=== PATIENT | male | born 1995 | race Caucasian/White ===

== ENCOUNTER 2016-07-21 18:34 | Emergency (ER) | payer BC ==
[2016-07-21 18:55] VITALS: BP 138/87
[2016-07-21] MEDS ORDERED: Sodium Chloride 0.9% 10 ML Syringe FLUSH PRN (19:06)
[2016-07-21] MEDS ORDERED: Ondansetron 4 MG/2 ML SDV IVPUSH ONE (19:07)
--- NOTE | 2016-07-21 19:09 | EDM.PDOC ---
ED HPI GI/ABDOMINAL - General Chief Complaint: Abdominal Pain Stated Complaint: VOMITING Time Seen by Provider: 07/21/16 19:02 Source: Reports: Patient, Family, RN notes reviewed History Limitations: Reports: No limitations - History of Present Illness INITIAL COMMENTS - FREE TEXT/NARRATIVE: 21-year-old gentleman presents as a complaint of nausea and vomiting he states he has been ill for about a week, denies any other symptoms no sick contacts denies any stool has not been able to keep any food down - Related Data Allergies/ADRs: Allergies Allergy/AdvReac Type Severity Reaction Status Date / Time No Known Allergies Allergy Verified 07/21/16 18:51 Home Meds: Home Meds NK [No Known Home Meds] 06/13/14 [History] Past Medical History Respiratory History: Reports: Asthma Gastrointestinal History: Reports: Other (see below) Other Gastrointestinal History: vomiting blood Neurological History: Reports: Migraines Psychiatric History: Reports: ADHD - Past Surgical History GI Surgical History: Reports: EGD Social & Family History - Tobacco Use Smoking Status *Q: Current Every Day Smoker Years of Tobacco use: 7 Packs/Tins Daily: 1 Used Tobacco, but Quit: No Second Hand Smoke Exposure: Yes - Caffeine Use Caffeine Use: Reports: Soda - Alcohol Use Days Per Week of Alcohol Use: 0 Date of Last Drink: 07/16/16 - Recreational Drug Use Recreational Drug Use: No ED ROS GENERAL - Review of Systems Review Of Systems: See Below Constitutional: Denies: fever, chills HEENT: Reports: No symptoms Respiratory: Reports: No Symptoms Cardiovascular: Reports: No symptoms GI/Abdominal: Reports: Nausea, Vomiting. Denies: Abdominal pain : Reports: no symptoms Musculoskeletal: Reports: no symptoms Skin: Reports: no symptoms Neurological: Reports: No Symptoms ED EXAM, GI/ABD - Physical Exam Exam: See Below Text/Narrative:: General: Male, not in any distress, alert and oriented x3 HEENT: head is atraumatic normocephalic, eyes pupils equal round reactive to light, sclera clear no conjunctivitis appreciated. Ears tympanic membranes clear and chin landmarks and light reflex are present bilaterally canals are clear. Nose no septal deviation, nares are clear, no blood present. Mouth mucosa is moist and pink no erythema or exudate noted in soft palate, tongue is midline uvula is midline, dentition is intact. Neck: Supple no thyromegaly no tracheal deviation. Nodes: Cervical nodes subclavicular nodes nontender no palpable lymphadenopathy noted. Lungs: clear to auscultation bilaterally with symmetrical respirations, no adventitious noise appreciated. CV: Regular rate and rhythm S1 and S2 appreciated no murmurs rubs or gallops noted. Abdomen: Soft, nontender, no palpable masses or organomegaly appreciated, no distention no guarding bowel sounds are present, . Neuro: Cranial nerves II through XII grossly intact Skin: Warm and dry, intact Extremities: No lower extremity edema appreciated, Course - Vital Signs Last Recorded V/S: Last Vital Signs Temp 96.6 F 07/21/16 18:53 Pulse 80 07/21/16 18:53 Resp 16 07/21/16 18:53 BP 138/87 07/21/16 18:53 Pulse Ox 99 07/21/16 18:53 - Orders/Labs/Meds Orders: Active Orders 24 hr Category Date Time Status Peripheral IV Care [RC] . DIRECTED Care 07/21/16 19:06 Active Lactated Ringers [Ringers, Lactated] 1,000 ml Med 07/21/16 19:15 Active IV ASDIRECTED Sodium Chloride 0.9% [Saline Flush] Med 07/21/16 19:06 Active 10 ml FLUSH ASDIRECTED PRN Peripheral IV Insertion Adult [OM.PC] Urgent Oth 07/21/16 19:06 Ordered Medication Orders Lactated Ringer's (Ringers, Lactated) 1,000 mls @ 999 mls/hr IV ASDIRECTED GUSTAVO Last Admin: 07/21/16 19:29 Dose: 999 mls/hr Sodium Chloride (Saline Flush) 10 ml FLUSH ASDIRECTED PRN PRN Reason: Keep Vein Open Last Admin: 07/21/16 19:33 Dose: 10 ml Labs: Laboratory Tests 07/21/16 07/21/16 07/21/16 Range/Units 19:19 19:19 19:19 WBC 8.3 (4.5-11.0) K/uL RBC 5.06 (4.30-5.90) M/uL Hgb 16.2 H (12.0-15.0) g/dL Hct 44.9 (40.0-54.0) % MCV 89 (80-98) fL MCH 32 H (27-31) pg MCHC 36 (32-36) % Plt Count 260 (150-400) K/uL Neut % (Auto) 53 (36-66) % Lymph % (Auto) 31 (24-44) % [place] % (Auto) 13 H (2-6) % Eos % (Auto) 2 (2-4) % Baso % (Auto) 1 (0-1) % Sodium 140 (140-148) mmol/L Potassium 3.8 (3.6-5.2) mmol/L Chloride 104 (100-108) mmol/L Carbon Dioxide 30 (21-32) mmol/L Anion Gap 6.3 (5.0-14.0) mmol/L BUN 8 (7-18) mg/dL Creatinine 1.0 (0.8-1.3) mg/dL Est Cr Clr Drug Dosing 108.33 mL/min Estimated GFR (MDRD) > 60 (>60) Glucose 107 H (74-106) mg/dL Lactic Acid 0.8 (0.4-2.0) mmol/L Calcium 8.5 (8.5-10.1) mg/dL Total Bilirubin 0.9 D (0.2-1.0) mg/dL AST 11 L (15-37) U/L ALT 17 (12-78) U/L Alkaline Phosphatase 92 (46-116) U/L Total Protein 7.2 (6.4-8.2) g/dL Albumin 4.3 (3.4-5.0) g/dL Globulin 2.9 (2.3-3.5) g/dL Albumin/Globulin Ratio 1.5 (1.2-2.2) Lipase 147 (73-393) U/L Urine Color Urine Appearance Urine pH (4.5-8.0) Ur Specific [place] (1.008-1.030) Urine Protein (NEGATIVE) mg/dL Urine Glucose (UA) (NEGATIVE) mg/dL Urine Ketones (NEGATIVE) mg/dL Urine Occult Blood (NEGATIVE) Urine Nitrite (NEGAITVE) Urine Bilirubin (NEGATIVE) Urine Urobilinogen (NORMAL) mg/dL Ur Leukocyte Esterase (NEGATIVE) Urine RBC (0-5) Urine WBC (0-5) Ur Epithelial Cells Amorphous Sediment Urine Bacteria Urine Mucus 07/21/16 Range/Units 20:50 WBC (4.5-11.0) K/uL RBC (4.30-5.90) M/uL Hgb (12.0-15.0) g/dL Hct (40.0-54.0) % MCV (80-98) fL MCH (27-31) pg MCHC (32-36) % Plt Count (150-400) K/uL Neut % (Auto) (36-66) % Lymph % (Auto) (24-44) % [place] % (Auto) (2-6) % Eos % (Auto) (2-4) % Baso % (Auto) (0-1) % Sodium (140-148) mmol/L Potassium (3.6-5.2) mmol/L Chloride (100-108) mmol/L Carbon Dioxide (21-32) mmol/L Anion Gap (5.0-14.0) mmol/L BUN (7-18) mg/dL Creatinine (0.8-1.3) mg/dL Est Cr Clr Drug Dosing mL/min Estimated GFR (MDRD) (>60) Glucose (74-106) mg/dL Lactic Acid (0.4-2.0) mmol/L Calcium (8.5-10.1) mg/dL Total Bilirubin (0.2-1.0) mg/dL AST (15-37) U/L ALT (12-78) U/L Alkaline Phosphatase (46-116) U/L Total Protein (6.4-8.2) g/dL Albumin (3.4-5.0) g/dL Globulin (2.3-3.5) g/dL Albumin/Globulin Ratio (1.2-2.2) Lipase (73-393) U/L Urine Color Yellow Urine Appearance Clear Urine pH 7.0 (4.5-8.0) Ur Specific [place] 1.010 (1.008-1.030) Urine Protein Negative (NEGATIVE) mg/dL Urine Glucose (UA) Normal (NEGATIVE) mg/dL Urine Ketones Negative (NEGATIVE) mg/dL Urine Occult Blood Negative (NEGATIVE) Urine Nitrite Negative (NEGAITVE) Urine Bilirubin Negative (NEGATIVE) Urine Urobilinogen Normal (NORMAL) mg/dL Ur Leukocyte Esterase Negative (NEGATIVE) Urine RBC 0-5 (0-5) Urine WBC 0-5 (0-5) Ur Epithelial Cells Few Amorphous Sediment Few Urine Bacteria Few Urine Mucus Moderate Meds: Medications Generic Name Dose Route Start Last Admin Trade Name Freq PRN Reason Stop Dose Admin Lactated Ringer's 1,000 mls @ 999 mls/hr 07/21/16 19:15 07/21/16 19:29 Ringers, Lactated IV 999 mls/hr ASDIRECTED GUSTAVO Administration Sodium Chloride 10 ml 07/21/16 19:06 07/21/16 19:33 Saline Flush FLUSH 10 ml ASDIRECTED PRN Administration Keep Vein Open Discontinued Medications Generic Name Dose Route Start Last Admin Trade Name Freq PRN Reason Stop Dose Admin Ondansetron HCl 4 mg 07/21/16 19:07 07/21/16 19:31 Zofran IVPUSH 07/21/16 19:08 4 mg ONETIME ONE Administration Departure - Departure Time of Disposition: 21:10 Disposition: Home, Self-Care 01 Condition: good Clinical Impression: Nausea & vomiting Qualifiers: Vomiting type: unspecified Vomiting Intractability: non-intractable Qualified Code(s): R11.2 - Nausea with vomiting, unspecified Forms: ED Department Discharge Additional Instructions: Uses Zofran as needed to help control nausea and vomiting symptoms, Please followup with your primary care provider in 3-5 days if not better, please call return to the emergency department with worsening of symptoms. - My Orders Last 24 Hours: My Active Orders 07/21/16 19:06 Peripheral IV Care [RC] . DIRECTED Sodium Chloride 0.9% [Saline Flush] 10 ml FLUSH ASDIRECTED PRN Peripheral IV Insertion Adult [OM.PC] Urgent 07/21/16 19:15 Lactated Ringers [Ringers, Lactated] 1,000 ml IV ASDIRECTED - Assessment/Plan Last 24 Hours: My Active Orders 07/21/16 19:06 Peripheral IV Care [RC] . DIRECTED Sodium Chloride 0.9% [Saline Flush] 10 ml FLUSH ASDIRECTED PRN Peripheral IV Insertion Adult [OM.PC] Urgent 07/21/16 19:15 Lactated Ringers [Ringers, Lactated] 1,000 ml IV ASDIRECTED Plan: Assessment Acuity = acute Site and laterality = nausea vomiting Etiology = unclear etiology possibly stress related Manifestations = none Location of injury = home Lab values = CBC, CMP, urinalysis unremarkable specific gravity 1.01 Plan He had significant improvement combination Zofran and 1 L of fluids he was able to urinate after that, plan followup with primary care next 3-5 days if no improvement prescription written for Zofran Patient was in agreement with the plan all questions were answered, they were instructed to return to the emergency department or call for worsening symptoms. This note was dictated using [employer] voice recognition software please call with any questions.
[2016-07-21] MEDS ORDERED: Lactated Ringers 1,000 ML IV SCH (19:15)
== END 2016-07-21 21:22 | disposition home or self-care (01) ==
LOC: JP.ED 18:34
DX: R11.2 Nausea with vomiting, unspecified (principal); F17.210 Nicotine dependence, cigarettes, uncomplicated
CPT/HCPCS: 36415; 80053; 81001; 83605; 83690; 85025; 96361; 96374; 99284; J2405; J7050; J7120

== ENCOUNTER 2016-07-22 19:10 | Emergency (ER) | payer BC ==
[2016-07-22 19:31] VITALS: BP 134/98
[2016-07-22] MEDS ORDERED: Acetaminophen 325 MG Tab PO ONE (19:56)
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
== END 2016-07-22 22:49 | disposition home or self-care (01) ==
LOC: JP.ED 19:10
DX: R45.851 Suicidal ideations (principal); J45.909 Unspecified asthma, uncomplicated
CPT/HCPCS: 80305; 81001; 99285; A9270

== ENCOUNTER 2016-08-29 00:58 | Emergency (ER) | payer BC ==
[2016-08-29 01:29] VITALS: BP 131/64
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
== END 2016-08-29 04:28 | disposition home or self-care (01) ==
LOC: JP.ED 00:58
DX: F10.10 Alcohol abuse, uncomplicated (principal); R45.851 Suicidal ideations; J45.909 Unspecified asthma, uncomplicated; F17.210 Nicotine dependence, cigarettes, uncomplicated
CPT/HCPCS: 99284

== ENCOUNTER 2016-08-29 14:10 | Emergency (ER) | payer BC ==
[2016-08-29 14:23] VITALS: BP 122/76
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
== END 2016-08-29 16:27 | disposition home or self-care (01) ==
LOC: JP.ED 14:10
DX: F10.20 Alcohol dependence, uncomplicated (principal); J45.909 Unspecified asthma, uncomplicated; F17.210 Nicotine dependence, cigarettes, uncomplicated
CPT/HCPCS: 99285

== ENCOUNTER 2016-10-22 07:47 | Day surgery (SDC) | payer BC ==
[~2016-10-22 07:47] MED LIST: Bupivacaine 0.5% 50 ML MDV ONE; Lidocaine 1% with EPINEPHrine 1:100,000 50 ML MDV ONE; Midazolam 1 MG/ML 2 ML SDV ONE; Propofol 200 MG/20 ML SDV ONE; fentaNYL 100 MCG/2 ML SDV ONE
[2016-10-22] MEDS ORDERED: Sodium Chloride 0.9% 1,000 ML IV SCH (08:30)
[2016-10-22] MEDS ORDERED: ceFAZolin 2 GM in Premix Bag 1 BAG IV ONE (09:00)
[2016-10-22] MEDS ORDERED: Midazolam 1 MG/ML 2 ML SDV ONE (09:23)
[2016-10-22] MEDS ORDERED: Bacitracin Oint 1 GM U/D Packet ONE (09:35)
[2016-10-22 10:44] VITALS: BP 98/57
--- NOTE | 2016-10-23 09:02 | OR ---
DATE OF PROCEDURE: 10/22/2016 PROCEDURE PERFORMED: Excision of lesion, right buttock. COMPLICATION: None. INDUSTRY CONSULTANT: None. ANESTHESIA: MAC. INDICATIONS: A 21-year-old male with significant anxiety requiring excision of right buttock lesion using MAC anesthetic. PROCEDURE IN DETAIL: The patient was placed in left lateral decubitus position. The lesion which had been identified preoperatively by the patient was anesthetized with lidocaine. An elliptical incision was made. This was full thickness and this was 3.2 cm. This was then excised and sent to Pathology. The wound was checked for hemostasis, which was achieved. The wound was closed with 3-0 Vicryl and 3-0 Prolene in an interrupted running fashion and dressings were applied. The patient tolerated the procedure well. Eusebio Arzola MD /[id number]
== END 2016-10-22 10:50 | disposition home or self-care (01) ==
LOC: JP.SDS 07:47
PROVIDERS: ATTEND Surgery
DX: L02.212 Cutaneous abscess of back [any part, except buttock and flank] (principal); L90.5 Scar conditions and fibrosis of skin
CPT/HCPCS: 11404; 12032; J0690; J2250; J2704; J3010; J7040; 88304

== ENCOUNTER 2019-01-25 09:07 | Day surgery (SDC) | payer BC ==
--- NOTE | 2019-01-25 09:41 | EDM.PDOC ---
ED HPI GENERAL MEDICAL PROBLEM - General Chief Complaint: Lower Extremity Injury/Pain Stated Complaint: growth on leg Time Seen by Provider: 01/25/19 09:25 Source of Information: Reports: Patient History Limitations: Reports: No Limitations - History of Present Illness INITIAL COMMENTS - FREE TEXT/NARRATIVE: 23-year-old male with a worsening painful lesion on his right anterior buttock area in the perirectal region, scheduled to have surgery tomorrow. It's much more painful today, he's having difficulty walking. He went into the clinic to see if he could have it taken care of or at least get something for pain, and they sent him to the emergency room. No fevers or chills. He is on clindamycin but missed a dose last night. Onset: Gradual Duration: Day(s): (Several days of increased pain) Location: Reports: Other (Right buttock) Associated Symptoms: Reports: Loss of Appetite Sacral Pain Score (Numeric/FACES): 10 - Related Data Allergies Allergy/AdvReac Type Severity Reaction Status Date / Time No Known Allergies Allergy Verified 01/25/19 12:21 Home Meds: Home Meds Clindamycin HCl 300 mg PO ASDIRECTED 01/25/19 [History] Past Medical History - Past Health History Medical/Surgical History: Denies Medical/Surgical History HEENT History: Reports: Sinusitis Respiratory History: Reports: Asthma Gastrointestinal History: Reports: Other (See Below) Other Gastrointestinal History: vomiting blood Neurological History: Reports: Migraines Psychiatric History: Reports: ADHD, Suicidal Ideation, Other (See Below) Other Psychiatric History: pt states no suicide attempt was on chart prior Dermatologic History: Reports: Other (See Below) Other Dermatologic History: Pilondal cyst x 8 - Infectious Disease History Infectious Disease History: Reports: Chicken Pox - Past Surgical History GI Surgical History: Reports: EGD Social & Family History - Family History Family Medical History: Noncontributory - Tobacco Use Smoking Status *Q: Current Every Day Smoker Years of Tobacco use: 10 Packs/Tins Daily: 2 - Caffeine Use Caffeine Use: Reports: Soda - Recreational Drug Use Recreational Drug Use: No Review of Systems - Review of Systems Review Of Systems: See Below Constitutional: Denies: Fever Respiratory: Reports: No Symptoms Cardiovascular: Reports: No Symptoms GI/Abdominal: Reports: No Symptoms. Denies: Nausea, Vomiting Skin: Reports: Erythema (Erythema over and around the inflamed area) Neurological: Reports: No Symptoms ED EXAM, GENERAL - Physical Exam Exam: See Below Exam Limited By: No Limitations General Appearance: Alert, Mild Distress Respiratory/Chest: No Respiratory Distress Cardiovascular: Regular Rate, Rhythm, Tachycardia GI/Abdominal: Non-Tender Neurological: Alert, Oriented Skin Exam: Other (Patient is a large, inflamed, very tender subcutaneous abscess which is developed just in front of the anus on the right buttock) Course - Vital Signs Last Recorded V/S: Last Vital Signs Temp 99.5 F 01/25/19 14:38 Pulse 79 01/25/19 14:53 Resp 18 01/25/19 14:53 BP 113/75 01/25/19 14:53 Pulse Ox 95 01/25/19 14:38 - Orders/Labs/Meds Orders: Active Orders 24 hr Category Date Time Status Patient Status [ADT] Routine ADT 01/25/19 10:46 Active CULTURE ANAEROBIC [RM] Routine Lab 01/25/19 13:58 Results CULTURE WOUND + SMEAR [RM] Routine Lab 01/25/19 13:58 Results Sodium Chloride 0.9% [Normal Saline] 1,000 ml Med 01/25/19 10:45 Active IV ASDIRECTED Medication Orders Sodium Chloride (Normal Saline) 1,000 mls @ 250 mls/hr IV ASDIRECTED GUSTAVO Last Admin: 01/25/19 11:08 Dose: 250 mls/hr Meds: Medications Generic Name Dose Route Start Last Admin Trade Name Freq PRN Reason Stop Dose Admin Sodium Chloride 1,000 mls @ 250 mls/hr 01/25/19 10:45 01/25/19 11:08 Normal Saline IV 250 mls/hr ASDIRECTED GUSTAVO Administration Discontinued Medications Generic Name Dose Route Start Last Admin Trade Name Freq PRN Reason Stop Dose Admin Bupivacaine HCl Confirm 01/25/19 10:58 01/25/19 13:40 Marcaine 0.5% Administered 01/25/19 10:59 20 ml Dose Administration 50 ml .ROUTE .STK-MED ONE Cefoxitin Sodium Confirm 01/25/19 13:35 Mefoxin Administered 01/25/19 13:36 Dose 2 gm .ROUTE .STK-MED ONE Dexamethasone Confirm 01/25/19 12:44 Dexamethasone Administered 01/25/19 12:45 Dose 4 mg .ROUTE .STK-MED ONE Fentanyl 50 mcg 10/30/19 10:44 01/25/19 11:11 Sublimaze IVPUSH 01/25/19 10:45 50 mcg ONETIME ONE Administration Fentanyl Confirm 01/25/19 12:43 Sublimaze Administered 01/25/19 12:44 Dose 250 mcg .ROUTE .STK-MED ONE Fentanyl Confirm 01/25/19 13:30 Sublimaze Administered 01/25/19 13:31 Dose 250 mcg .ROUTE .STK-MED ONE Glycopyrrolate Confirm 01/25/19 12:44 Robinul Administered 01/25/19 12:45 Dose 1 mg .ROUTE .STK-MED ONE Ampicillin Sodium/Sulbactam 100 mls @ 200 mls/hr 01/25/19 10:44 01/25/19 11: 09 Sodium 3 gm/ Sodium Chloride IV 01/25/19 11:13 200 mls/hr ONETIME ONE Administration Lactated Ringer's Confirm 01/25/19 13:42 Ringers, Lactated Administered 01/25/19 13:43 Dose 1,000 mls @ as directed .ROUTE .STK-MED ONE Lidocaine/Epinephrine Confirm 01/25/19 10:58 01/25/19 13:40 Xylocaine 1% With Epinephrine 1:100,000 Administered 01/25/19 10:59 20 ml Dose Administration 50 ml .ROUTE .STK-MED ONE Neostigmine Methylsulfate Confirm 01/25/19 12:44 Neostigmine Administered 01/25/19 12:45 Dose 5 mg .ROUTE .STK-MED ONE Ondansetron HCl Confirm 01/25/19 12:44 Zofran Administered 01/25/19 12:45 Dose 4 mg .ROUTE .STK-MED ONE Propofol Confirm 01/25/19 12:44 Diprivan 20 Ml Administered 01/25/19 12:45 Dose 200 mg .ROUTE .STK-MED ONE Rocuronium [place] Confirm 01/25/19 12:44 Zemuron Administered 01/25/19 12:45 Dose 50 mg .ROUTE .STK-MED ONE - Re-Assessments/Exams Free Text/Narrative Re-Assessment/Exam: 01/25/19 09:40 The patient has not eaten anything" 2 days" and has not drank anything but a Mountain Dew 3-1/2 hours ago. A call was put into Dr. Blanca for surgical consultation. 01/25/19 10:45 Case was discussed with Dr[address] Arzola as well. An IV was started, patient was given 3 g of Unasyn IV as well as 50 g of IV fentanyl and hydrated with normal saline. He will be worked in to Dr. Blanca's schedule today. Departure - Departure Time of Disposition: 13:27 Disposition: DC/Tfer to Other 70 Clinical Impression: Subcutaneous abscess Qualifiers: Site of cutaneous abscess: buttock Qualified Code(s): L02.31 - Cutaneous abscess of buttock - Discharge Information - My Orders Last 24 Hours: My Active Orders 01/25/19 10:45 Sodium Chloride 0.9% [Normal Saline] 1,000 ml IV ASDIRECTED 01/25/19 10:46 Patient Status [ADT] Routine - Assessment/Plan Last 24 Hours: My Active Orders 01/25/19 10:45 Sodium Chloride 0.9% [Normal Saline] 1,000 ml IV ASDIRECTED 01/25/19 10:46 Patient Status [ADT] Routine
[2019-01-25] MEDS ORDERED: fentaNYL 100 MCG/2 ML SDV IVPUSH ONE (10:44)
[2019-01-25] MEDS ORDERED: Ampicillin/Sulbactam Na 3 GM in Sodium Chloride 0.9% 100 ML IV ONE (10:44)
[2019-01-25] MEDS ORDERED: Sodium Chloride 0.9% 1,000 ML IV SCH (10:45)
[2019-01-25] MEDS ORDERED: Bupivacaine 0.5% 50 ML MDV ONE (10:58)
[2019-01-25] MEDS ORDERED: Lidocaine 1% with EPINEPHrine 1:100,000 50 ML MDV ONE (10:58)
[2019-01-25] MEDS ORDERED: fentaNYL 250 MCG/5 ML SDV ONE ×2 (12:43→13:30)
[2019-01-25] MEDS ORDERED: Propofol 200 MG/20 ML SDV ONE (12:44)
[2019-01-25] MEDS ORDERED: Neostigmine Methylsulfate 1 MG/ML 5 ML Syringe ONE (12:44)
[2019-01-25] MEDS ORDERED: Dexamethasone 4 MG/ML SDV ONE (12:44)
[2019-01-25] MEDS ORDERED: Rocuronium 50 MG/5 ML Vial ONE (12:44)
[2019-01-25] MEDS ORDERED: Glycopyrrolate 0.2 MG/ML 5 ML MDV ONE (12:44)
[2019-01-25] MEDS ORDERED: Ondansetron 4 MG/2 ML SDV ONE (12:44)
[2019-01-25] MEDS ORDERED: cefOXitin 2 GM Vial ONE (13:35)
[2019-01-25] MEDS ORDERED: Lactated Ringers 1,000 ML ONE (13:42)
[2019-01-25 15:50] VITALS: BP 119/85; PULSE 88
--- NOTE | 2019-01-26 08:14 | OR ---
DATE OF PROCEDURE: 01/25/2019 SURGEON: Candido Blanca MD PREOPERATIVE DIAGNOSIS: Right buttock abscess. POSTOPERATIVE DIAGNOSIS: Right perirectal abscess. PROCEDURE: Incision and drainage of right perirectal abscess. ANESTHESIA: General endotracheal. INDICATION: This 23-year-old white male has a large, swollen, tender area over his right buttock, which is obviously an abscess. He was seen in the clinic yesterday, but could not have it done in the clinic to drain it because he did not want to undergo a local anesthetic, so he was scheduled to have this done tomorrow. However, he presented to the emergency room stating that it hurts too much, and he has to have this done today. He is n.p.o. He has a large right buttock abscess. I counseled him for incision and drainage of this, including risks and alternatives, and he gave his informed consent to proceed. DESCRIPTION OF PROCEDURE: After adequate general endotracheal anesthesia was obtained, the patient was placed in prone sylwia-knife position. His anal and perianal area and buttock area were all prepped and draped in the usual sterile fashion. Time-out was held. A radial incision was made toward the anus in the abscess, releasing copious quantities of foul- smelling chin, purple, black purulent material. This was sent for gram stain and culture. An elliptical incision was made. We did encounter a piece of stool within the abscess cavity, consistent with a fistula. We could not find the track heading into the rectum. Hemostasis was obtained with electrocautery. The incision was irrigated and dried, and then packed with 1-inch iodoform gauze. A sterile dressing was applied. He was placed supine. The anesthesia was reversed. He was extubated and brought to recovery room in good condition. Plan will be to let this heal and see if it will close. Expect a referral to colorectal surgeon in [place] for ultimate treatment. Candido Blanca MD /[id number]
== END 2019-01-25 15:45 | disposition home or self-care (01) ==
LOC: JP.ED 09:07 → JP.SDS 10:58
PROVIDERS: ATTEND Surgery
DX: K61.1 Rectal abscess (principal); J45.909 Unspecified asthma, uncomplicated; F17.210 Nicotine dependence, cigarettes, uncomplicated
CPT/HCPCS: 87070; 87075; 87077; 87186; 87205; 96361; 96365; 99284-25; J0295; J0694; J1100; J2405; J2704; J2710; J3010; J3490; J7030; J7120

== ENCOUNTER 2021-04-12 01:32 | Emergency (ER) | payer SELFPAY ==
[2021-04-12 01:42] VITALS: BP 111/58; PULSE 130
[2021-04-12 02:34] LABS: CORONAVIRUS COVID-19 NAA NEGATIVE (NEGATIVE)
== END 2021-04-12 02:53 | disposition home or self-care (01) ==
LOC: JP.ED 01:32
DX: J20.9 Acute bronchitis, unspecified (principal); E87.6 Hypokalemia; Z20.822 Contact with and (suspected) exposure to COVID-19
CPT/HCPCS: 0241U; 36415; 71046; 80053; 83605; 85025; 86140; 99283; 99285

== ENCOUNTER 2021-10-07 10:36 | Emergency (ER) | payer SELFPAY ==
[2021-10-07 10:59] VITALS: BP 123/84; PULSE 91
== END 2021-10-07 12:11 | disposition home or self-care (01) ==
LOC: JP.ED 10:36
DX: K29.70 Gastritis, unspecified, without bleeding (principal)
CPT/HCPCS: 36415; 71046; 71046-26; 80048; 85025; 99282; 99283

== ENCOUNTER 2025-02-28 07:49 | Emergency (ER) | payer SELFPAY ==
[2025-02-28] MEDS ORDERED: Naloxone 0.4 MG/ML SDV IVPUSH PRN (08:12)
[2025-02-28 08:30] LABS: BASOPHILS ABSOLUTE AUTO 0.05 K/uL (0.00-0.10); BASOPHILS PERCENT AUTO 0.5 % (0.1-1.3); EOSINOPHILS ABSOLUTE AUTO 0.28 K/uL (0.00-0.40); EOSINOPHILS PERCENT AUTO 2.6 % (0.0-5.4); IMMATURE GRAN ABSOLUTE AUTO 0.04 K/uL (0.00-0.23); IMMATURE GRAN PERCENT AUTO 0.4 % (0.0-0.7); LYMPHOCYTES ABSOLUTE AUTO 2.13 K/uL (0.8-3.3); LYMPHOCYTES PERCENT AUTO 19.9 % (11.4-47.7); MONOCYTES ABSOLUTE AUTO 0.98 K/uL (0.20-0.90); MONOCYTES PERCENT AUTO 9.1 % (3.3-12.6); NEUTROPHILS ABSOLUTE AUTO 7.25 K/uL (1.0-7.6); NEUTROPHILS PERCENT AUTO 67.5 % (40.0-78.1); PLATELET COUNT,PLT 282 K/uL (130-375); RED BLOOD CELL COUNT 4.77 M/uL (4.14-5.76); WHITE BLOOD CELL COUNT,WBC 10.7 K/uL (3.2-11.0)
[2025-02-28 08:53] LABS: A/G RATIO 1.2 (1.2-2.2); ALANINE AMINOTRANSFERASE,ALT 36 U/L (12-78); ASPARTATE AMNIOTRANSFERASE,AST 20 U/L (15-37); BILIRUBIN TOTAL 0.5 mg/dL (0.2-1.0); BLOOD UREA NITROGEN,BUN 14 mg/dL (7-18); CARBON DIOXIDE,CO2 29 mmol/L (21-32); CHLORIDE,CL 105 mmol/L (100-108); CREATININE 0.9 mg/dL (0.8-1.3); EST CRCL DRUG DOSING (CG) 118.92 mL/min; ESTIMATED GFR 117 mL/min (>60); GLUCOSE RANDOM 112 mg/dL (74-106); POTASSIUM,K 3.6 mmol/L (3.6-5.2); PROTEIN TOTAL,TP 7.3 g/dL (6.4-8.2); SODIUM,NA 143 mmol/L (140-148)
[2025-02-28] MEDS: Iopamidol 612 MG/ML 100 ML Bottle IV PRN (09:02)
[2025-02-28 10:11] VITALS: BP 110/72; PULSE 60
[2025-02-28 10:29] LABS: APPEARANCE,URINE CLEAR (CLEAR); GLUCOSE,URINE NEGATIVE (NEGATIVE); OCCULT BLOOD,URINE NEGATIVE (NEGATIVE)
[2025-02-28 10:51] LABS: SQUAMOUS EPITHELIAL CELLS,UR RARE /HPF; UROTHELIAL CELLS,URINE NOT SEEN /HPF
== END 2025-02-28 10:37 | disposition home or self-care (01) ==
LOC: JP.ED 07:49
DX: K61.1 Rectal abscess (principal); N49.2 Inflammatory disorders of scrotum; J45.909 Unspecified asthma, uncomplicated; Z79.899 Other long term (current) drug therapy
CPT/HCPCS: 36415; 72193; 80053; 80307; 81001; 83605; 85025; 86140; 96374; 99284; J1171; J7030; Q9967

== ENCOUNTER 2025-03-01 03:51 | Emergency (ER) | payer MEDICAID ==
[2025-03-01 04:48] LABS: BASOPHILS ABSOLUTE AUTO 0.08 K/uL (0.00-0.10); BASOPHILS PERCENT AUTO 0.7 % (0.1-1.3); EOSINOPHILS ABSOLUTE AUTO 0.23 K/uL (0.00-0.40); EOSINOPHILS PERCENT AUTO 2.0 % (0.0-5.4); IMMATURE GRAN ABSOLUTE AUTO 0.03 K/uL (0.00-0.23); IMMATURE GRAN PERCENT AUTO 0.3 % (0.0-0.7); LYMPHOCYTES ABSOLUTE AUTO 1.95 K/uL (0.8-3.3); LYMPHOCYTES PERCENT AUTO 16.7 % (11.4-47.7); MONOCYTES ABSOLUTE AUTO 1.31 K/uL (0.20-0.90); MONOCYTES PERCENT AUTO 11.2 % (3.3-12.6); NEUTROPHILS ABSOLUTE AUTO 8.06 K/uL (1.0-7.6); NEUTROPHILS PERCENT AUTO 69.1 % (40.0-78.1); PLATELET COUNT,PLT 262 K/uL (130-375); RED BLOOD CELL COUNT 4.49 M/uL (4.14-5.76); WHITE BLOOD CELL COUNT,WBC 11.7 K/uL (3.2-11.0)
[2025-03-01 07:22] VITALS: BP 120/74; PULSE 77
[2025-03-01] MEDS ORDERED: Lidocaine 1% with EPINEPHrine 1:100,000 20 ML MDV INJECT ONE (08:12)
[2025-03-01] MEDS: Ondansetron 4 MG/2 ML SDV IVPUSH ONE (08:27)
[2025-03-01] MEDS: Ondansetron 4 MG/2 ML SDV ONE (08:32)
== END 2025-03-01 10:16 | disposition home or self-care (01) ==
LOC: JP.ED 03:51
DX: L02.31 Cutaneous abscess of buttock (principal); F17.200 Nicotine dependence, unspecified, uncomplicated; J45.909 Unspecified asthma, uncomplicated; Z79.899 Other long term (current) drug therapy; Z86.16 Personal history of COVID-19
CPT/HCPCS: 10060; 36415; 85025; 87070; 87075; 87077; 87186; 87205; 96361; 96374; 96375; 96376; 99283; J1171; J2270; J2405; J7030